=== PATIENT | male | born 1965 | race Caucasian/White ===

== ENCOUNTER 2025-04-01 14:26 | Emergency (ER) | payer SELFPAY ==
[2025-04-01] MEDS: Fluorescein 1 MG Ophth Strip EYELF ONE (15:19)
[2025-04-01] MEDS: Tetracaine HCl/PF 0.5% 4 ML Bottle EYEBOTH ONE (15:19)
[2025-04-01] MEDS: Diphtheria,Pertussis(Acell),Tetanus Vaccine 0.5 ML Syringe IM ONE (15:19)
== END 2025-04-01 16:09 | disposition home or self-care (01) ==
LOC: MW.ED 14:26
DX: S05.02XA Injury of conjunctiva and corneal abrasion without foreign body, left eye, initial encounter (principal); H11.32 Conjunctival hemorrhage, left eye; Z79.899 Other long term (current) drug therapy; W22.8XXA Striking against or struck by other objects, initial encounter; Z23 Encounter for immunization
CPT/HCPCS: 90471; 99283; 99283-25; J3490